=== PATIENT | female | born 1970 | race Caucasian/White ===

== ENCOUNTER → 2016-05-11 | Outpatient (CLI) | payer MEDICAID ==
[~2016-05-11] MED LIST: ABILIFY10 MG PO; ACIPHEX 20 MG T20 MG PO; AEROCHAMBER1 DEV IH; ALBUTEROL2 PUFFS/17 IN; BACTRIM DS 8001 TA1 PO; BENZONATATE100 MG PO; CELEBREX 200MG200 MG PO; CELEBREX100 MG PO; CLARINEX D PO; FLEXERIL10 M1 PO; IBUPROFEN1 CRY PO; IMODIUM 2MG. CAP2 MG PO; LASIX20 MG PO; LASIX40 MG PO; LOMOTIL 2.5MG.2.5 MG PO; LYRICA 100 MG100 MG PO; MULTI-VITAMIN1 EACH PO; SYNTHROID0.112 MG PO; SYNTHROID0.2 MG PO; TOPAMAX200 MG PO; TRAZADONE HYDR100 MG PO; TRAZODONE 50MG50 MG PO; XANAX1 MG PO; ZOLOFT100 MG PO
[2016-05-11 15:16] LABS: LYMPH # 2.6 K/mm3 (0.7-4.5); LYMPH % 33.1 % (10-50.0)
[2016-05-11 15:25] LABS: HEMOGLOBIN 15.4 g/dL (12.2-16.2)
[2016-05-11 15:46] LABS: BUN 11 mg/dL (7-18)
[2016-05-11 16:58] LABS: GFR (ESTIMATED) 53 ML/MIN (59-)
== END ==
LOC: LAB 14:24
PROVIDERS: Physician Assistant
DX: E03.9 Hypothyroidism, unspecified (principal); G62.9 Polyneuropathy, unspecified

== ENCOUNTER → 2016-10-31 | Outpatient (CLI) | payer MEDICAID ==
--- NOTE | 2016-11-01 09:56 | RADIOLOGY REPORT PS360 ---
MRI-BRAIN W/O HISTORY: Severe chronic headache CHRONIC NONINTRACTABLE HEADACHE, BIPOLAR DISORDER ORDERING PHYSICIAN: MAUREEN MORILLO PATIENT AGE: 45 years COMPARISON: None TECHNIQUE: Standard multiplanar multiecho sequences are performed without contrast. FINDINGS: No cerebellar tonsillar ectopia. The CP angles, cerebellum, and brainstem have an unremarkable appearance. No midline shift, mass effect, intracranial hemorrhage, or hydrocephalus. No evidence of acute infarction or abnormal areas of restricted diffusion. There is normal rouse-white matter differentiation was unremarkable. White matter signal intensity. There is a small gyriform area of increased T2 signal in the left posterior parietal lobe. This does NOT show restricted diffusion. As may be due to small area of encephalomalacia in etiology indeterminate. The hippocampal Cathy right are unremarkable in the temporal horns are symmetric. No mastoid effusion or sinus air-fluid level. The pituitary, optic chiasm, and corpus callosum are unremarkable. IMPRESSION: 1. No acute intracranial findings. 2. Small area of increased T2 signal involving the cortex of the left parietal lobe which may be due to small area of encephalomalacia. Follow-up may confirm stability
== END ==
LOC: RAD 12:53
DX: R51 Headache (principal); F31.30 Bipolar disorder, current episode depressed, mild or moderate severity, unspecified; G89.29 Other chronic pain

== ENCOUNTER → 2016-11-28 | Outpatient (CLI) | payer MEDICAID ==
--- NOTE | 2016-11-30 21:32 | RADIOLOGY REPORT PS360 ---
MRI-C-SPINE W/O, MRI-3D RENDERING/MYELOGRAM HISTORY: NECK PAIN Patient Age: 46 years: Female Ordering Physician: JASON RETANA CRNA TECHNIQUE: Sagittal STIR, T1, T2, axial T1 and T2. On 1.5T Siemens wide bore MRI. 3-D MR myelogram image set obtained & performed on MRI workstation. Additional sagittal thin section T2 weighted dataset obtained from this latter acquisition as well (---76 CPT) MRI COMPARISON :No cervical studies available for comparison FINDINGS Cranial cervical junction appears intact. The cervical vertebral bodies are intact. C2/3 and C3/4 disc intact C4/5 mild disc bulge mild central disc protrusion.. Features just abuts anterior aspect the cervical cord. Diffuse indentation upon anterior thecal sac. . C5-6.. Disc/osteophyte are seen posteriorly and slightly more evident the right. Features indenting anterior aspect of thecal sac most evident just to the right of midline. Minor foraminal encroachment at this level bilateral. C6/7 moderate central disc protrusion most evident at this level. Abuts anterior aspect of cervical cord and perhaps very slight slight flattening anterior cervical cord from such. No significant foraminal encroachment C7/T1 disc intact T T1/T2 T2/T3 disc intact. 3-D MR myelogram image set shows a slight indentation upon the thecal sac at midline most evident at C6/7. Slight diffuse anterior indentation thecal sac at C 5/6. IMPRESSION Developing degenerative disc changes: C6/7. : moderate central disc protrusion at midline- indents thecal sac & abuts the cervical cord at midline C5-C6. Mild Diffuse disc/osteophyte posteriorly. Diffusely indents the anterior aspect of thecal sac and yield mild bilateral foraminal encroachment C4/5. Mild central disc bulge/protrusion slightly indents thecal sac perhaps just touches cervical cord at midline.
== END ==
LOC: RAD 14:30
DX: M54.2 Cervicalgia (principal)

== ENCOUNTER → 2017-01-02 | Outpatient (CLI) | payer MEDICAID ==
[~2017-01-02] MED LIST changes: +ASPIRIN 81MG TA81 MG PO; +BUPROPION HCL150 M1 PO; +COLESTID1 GM PO; +FLUOXETINE20 MG PO; +GABAPENTIN100 M1 PO; +IBUPROFEN800 MG PO; +OLANZAPINE5 MG PO; +PANTOPRAZOLE SO40 MG PO; +PROPRANOLOL HCL40 MG PO; +TRAMADOL 50MG T50 M1 PO; +VITAMIN D31000 IU PO
[2017-01-02 21:24] LABS: BUN 5 mg/dL (7-18)
[2017-01-02 21:26] LABS: GFR (ESTIMATED) 59 ML/MIN (59-)
--- NOTE | 2017-01-03 07:26 | RADIOLOGY REPORT PS360 ---
MRI-L-SPINE W/O, MRI-3D RENDERING/MYELOGRAM HISTORY: Low back pain, right-sided low back pain, incontinence LOW BACK PAIN, INCONTINENCE OF FECES ORDERING PHYSICIAN: AFSANEH SWANSON PATIENT AGE: 46 years COMPARISON: None TECHNIQUE: Standard multiplanar multiecho sequences are performed without contrast. 3-D MIP and myelographic images are also rendered and reviewed FINDINGS: There is normal alignment. The spinal cord ends at T11-T12 level. L2-L3: Degenerative disc disease with bulging disc with mild bilateral lateral recess and foraminal narrowing. There is minimal retrolisthesis of L2 of 2 mm with endplate osteophytes at L2-L3 L3-L4: Degenerative disc disease with bulging disc. There is broad-based central and right paracentral and right foraminal disc protrusion with right lateral recess narrowing and impingement upon the right L4 nerve root. There is mild facet hypertrophic change with bilateral foraminal narrowing. Schmorl's node is present along the superior endplate of L4. L4-5: Unremarkable. L5-S1: Mild degenerative disc disease. No canal stenosis or extruded herniated disc. IMPRESSION: 1. Degenerative disc disease L2-L3 with bulging disc with mild bilateral lateral recess and foraminal narrowing. There is minimal retrolisthesis of L2 of 2 mm with endplate osteophytes at L2-L3 2. Degenerative disc disease L3-L4 with bulging disc. There is broad-based central and right paracentral and right foraminal disc protrusion with right lateral recess narrowing and impingement upon the right L4 nerve root. There is mild facet hypertrophic change with bilateral foraminal narrowing.
== END ==
LOC: RAD 12-12 16:00 → LAB 12:52 → RAD 12:52
PROVIDERS: Physician Assistant
DX: M54.5 Low back pain (principal); R15.9 Full incontinence of feces; R73.9 Hyperglycemia, unspecified

== ENCOUNTER 2017-01-26 09:56 | Day surgery (SDC) | payer MEDICAID ==
[~2017-01-26] VITALS: Ht 162.6 cm; Wt 104.3 kg
[2017-01-26 10:08] VITALS: BP 149/91
[2017-01-26 10:29] VITALS: BP 149/91
[2017-01-26 10:35] VITALS: BP 155/95
--- NOTE | 2017-01-26 10:39 | Procedure Note ---
Procedure detail Date of procedure: 01/26/17 Anesthesiologist: Tenzin Romo Complications: None Pre-procedure diagnosis: Degenerative disc disease cervical spine multiple levels. Cervical radiculopathy symptoms. Post-procedure diagnosis: Same. Indications for procedure: Very pleasant 46-year-old white female that presents to our procedural clinic today for her initial cervical epidural steroid injection C7-T1 level. Patient claims of cervical neck pain with bilateral arm radiculopathy symptoms. She does have a surgery consultation appointment at the [facility] with Dr. Selby next week. She'll return to see us in the pain clinic for further evaluation. Procedure detail: Procedure:Cervical epidural steroid injection Informed consent was obtained and the risks and benefits of the procedure were explained to the patient. The patient was taken to the procedure room and noninvasive monitors placed, including noninvasive blood pressure cuff and pulse oximeter. The neck was prepped using Betadine as a cleansing solution. The C6-C7 interspace was palpated. The skin and subcutaneous tissues were anesthetized using lidocaine 1.5% and a 25-gauge needle. After this an 18-gauge Touhy epidural needle was placed into the C6-C7 interspace and advanced using loss of resistance to air until the epidural space was encountered. After confirmation of needle placement in the epidural space, a solution containing lidocaine 1.5%, 4 mL and Depo-Medrol 80 mg was incrementally injected into the cervical epidural space.~ The patient tolerated the procedure well with no complications. The patient was observed in the Pain Clinic and then discharged home neurologically intact. Plan and disposition: Patient was reevaluated 10 minutes post procedure. She is doing very well. She' ll return to see us in the clinic for further evaluation. at [id number]
[2017-01-26 10:50] VITALS: BP 131/87
== END 2017-01-26 10:50 | disposition home or self-care (01) ==
LOC: PM 09:56
PROC: 3E0R3BZ Introduction of Anesthetic Agent into Spinal Canal, Percutaneous Approach (ICD-10-PCS; principal; 2017-01-26)
PROC: 3E0R33Z Introduction of Anti-inflammatory into Spinal Canal, Percutaneous Approach (ICD-10-PCS; 2017-01-26)
PROC: B01B1ZZ Fluoroscopy of Spinal Cord using Low Osmolar Contrast (ICD-10-PCS; 2017-01-26)
DX: M50.10 Cervical disc disorder with radiculopathy, unspecified cervical region (principal)
CPT/HCPCS: J1040; Q9967